=== PATIENT | male | born 1965 | race Caucasian/White ===

== ENCOUNTER 2020-05-11 05:56 | Observation (INO) | payer OTHER ==
[~2020-05-11] VITALS: Ht 188 cm; Wt 141.1 kg
[~2020-05-11 05:56] MED LIST: ACTOS15 MG PO; ASPIRIN81 MG PO; BYDUREON P2 MG/0.65 SC; DULCOLAX5 MG PO; GLIPIZIDE ER5 MG PO; IBUPROFEN400 MG PO; LIPITOR10 MG PO; METFORMIN HCL500 M2 PO; METOPROLOL SUCC25 MG PO; SEROQUEL100 MG PO; TYLENOL325 M2 PO; VIT C PO; ZOFRAN8 MG PO
[2020-05-11] MEDS ORDERED: SODIUM CHLORIDE FLUSH 10 ML SYR INJ PRN (06:30)
[2020-05-11] MEDS ORDERED: LORAZEPAM INJ 2 MG/ML VIAL ONE (06:51)
[2020-05-11] MEDS ORDERED: SODIUM CHLORIDE 0.9% 1000ML 1,000 ML ONE (06:51)
[2020-05-11] MEDS ORDERED: LORAZEPAM INJ 2 MG/ML VIAL IV ONE (07:00)
[2020-05-11] MEDS ORDERED: POTASSIUM CHLORIDE 20 MEQ TAB CR PO STA (07:55)
[2020-05-11] MEDS ORDERED: POTASSIUM CHLORIDE 10MEQ/100ML 100 ML IV ONE (08:00)
[2020-05-11] MEDS ORDERED: MAGNESIUM SULFATE 2GM/50ML 50 ML IV ONE (08:00)
[2020-05-11] MEDS ORDERED: FAMOTIDINE 20 MG TAB PO SCH ×2 (10:30→16:30)
[2020-05-11] MEDS ORDERED: ONDANSETRON HCL INJ 2MG/ML 2ML 2 MG/ML VIAL IV PRN (10:30)
[2020-05-11 11:35] VITALS: BP 120/84
[2020-05-11 11:40] VITALS: BP 120/84
[2020-05-11] MEDS ORDERED: ASPIRIN81 MG PO (12:39)
[2020-05-11 13:47] LABS: CREATINE KINASE MB 1.5 ng/mL (0-5.0)
[2020-05-11 15:45] VITALS: BP 120/80
[2020-05-11] MEDS ORDERED: POTASSIUM CHLORIDE 20 MEQ TAB CR PO PRN (16:45)
[2020-05-11] MEDS ORDERED: IBUPROFEN 400 MG TAB PO PRN (16:45)
[2020-05-11 16:59] LABS: % IRON SATURATION 15 % (15-50); IRON 30 ug/dL (65-175); TOTAL IRON BINDING CAPACITY 206 ug/dL (261-478); TRANSFERRIN 147 mg/dL (174-364)
[2020-05-11 17:37] VITALS: BP 120/80
[2020-05-11 18:00] VITALS: BP_SYST 109; BP_SYST 113; BP_SYST 75; BP_DIAS 50; BP_DIAS 80
[2020-05-11 18:07] LABS: BASOPHILS % 0.3 % (0.0-1.0); EOSINOPHILS # (AUTO) 0.1 (0.0-0.4); EOSINOPHILS % 1.8 % (0.0-6.0); HEMATOCRIT 32.3 % (38.2-49.6); HEMOGLOBIN 9.9 g/dL (14.0-18.0); LYMPHOCYTES # (AUTO) 1.5 (1.0-3.2); LYMPHOCYTES % 21.9 % (18.0-39.1); MEAN CORPUSCULAR HEMOGLOBIN 27.7 pg (28-32); MEAN CORPUSCULAR HGB CONC 30.7 g/dL (31-35); MEAN CORPUSCULAR VOLUME 90.2 fL (81-99); MONOCYTES # (AUTO) 0.6 (0.2-0.8); MONOCYTES % 8.8 % (4.4-11.3); NEUTROPHILS # (AUTO) 4.5 (2.1-6.9); NEUTROPHILS % 66.9 % (38.7-80.0); PLATELET COUNT 267 x10e3/uL (140-360); RED BLOOD COUNT 3.58 x10e6/uL (4.3-5.7); RED CELL DISTRIBUTION WIDTH 15.8 % (11.7-14.4)
[2020-05-11 18:26] LABS: ANION GAP 14.4 mmol/L (8-16); BLOOD UREA NITROGEN 13 mg/dL (7-26); BUN/CREATININE RATIO 14 (6-25); CALCIUM 8.2 mg/dL (8.4-10.2); CARBON DIOXIDE 27 mmol/L (22-29); CHLORIDE 103 mmol/L (98-107); CREATININE, SERUM 0.94 mg/dL (0.72-1.25); EST GLOMERULAR FILTRATION RATE > 60 ML/MIN (60-); GLUCOSE 93 mg/dL (74-118); POTASSIUM 3.4 mmol/L (3.5-5.1); SODIUM 141 mmol/L (136-145)
[2020-05-11] MEDS ORDERED: SODIUM CHLORIDE 0.9% 250ML 250 ML IV ONE (18:50)
[2020-05-11 19:05] LABS: CREATINE KINASE MB 1.4 ng/mL (0-5.0)
[2020-05-11] MEDS ORDERED: SODIUM CHLORIDE 0.9% 1000ML 1,000 ML IV SCH (19:30)
[2020-05-11 20:00] VITALS: BP 115/75
[2020-05-11] MEDS: SODIUM CHLORIDE 0.9% 1000ML 1,000 ML IV SCH (20:30)
[2020-05-11] MEDS ORDERED: ATORVASTATIN 20 MG TAB PO SCH (21:00)
[2020-05-11] MEDS ORDERED: QUETIAPINE FUMARATE 100 MG TAB PO SCH (21:00)
[2020-05-11] MEDS ORDERED: TAMSULOSIN HCL 0.4 MG CAP PO SCH (21:00)
[2020-05-11] MEDS ORDERED: ATORVASTATIN 10 MG TAB PO SCH (21:00)
[2020-05-11] MEDS: HEPARIN SOD (PORCINE) 5,000 UNIT/ML VIAL SC SCH (21:25)
[2020-05-12] VITALS (8 sets, daily range): BP systolic 111–124; BP diastolic 66–81
[2020-05-12 02:33] LABS: BASOPHILS % 0.3 % (0.0-1.0); EOSINOPHILS # (AUTO) 0.1 (0.0-0.4); EOSINOPHILS % 1.7 % (0.0-6.0); HEMATOCRIT 32.2 % (38.2-49.6); HEMOGLOBIN 9.8 g/dL (14.0-18.0); LYMPHOCYTES # (AUTO) 1.5 (1.0-3.2); LYMPHOCYTES % 23.4 % (18.0-39.1); MEAN CORPUSCULAR HEMOGLOBIN 27.4 pg (28-32); MEAN CORPUSCULAR HGB CONC 30.4 g/dL (31-35); MEAN CORPUSCULAR VOLUME 89.9 fL (81-99); MONOCYTES # (AUTO) 0.5 (0.2-0.8); MONOCYTES % 8.3 % (4.4-11.3); NEUTROPHILS # (AUTO) 4.2 (2.1-6.9); PLATELET COUNT 240 x10e3/uL (140-360); RED BLOOD COUNT 3.58 x10e6/uL (4.3-5.7); RED CELL DISTRIBUTION WIDTH 15.7 % (11.7-14.4)
[2020-05-12 02:42] LABS: INR 0.96; PROTHROMBIN TIME 13.3 seconds (11.9-14.5)
[2020-05-12 02:50] LABS: CHOL/HDL RATIO 3.3 (3.9-4.7); MAGNESIUM 1.9 MG/DL (1.3-2.1)
[2020-05-12 03:00] LABS: ALANINE AMINOTRANSFERASE 13 IU/L (0-55); ALBUMIN 3.3 g/dL (3.5-5.0); ALBUMIN/GLOBULIN RATIO 1.1 (0.8-2.0); ALKALINE PHOSPHATASE 57 IU/L (40-150); BLOOD UREA NITROGEN 13 mg/dL (7-26); BUN/CREATININE RATIO 16 (6-25); CALCIUM 8.1 mg/dL (8.4-10.2); CARBON DIOXIDE 25 mmol/L (22-29); CHLORIDE 103 mmol/L (98-107); CREATININE, SERUM 0.83 mg/dL (0.72-1.25); EST GLOMERULAR FILTRATION RATE > 60 ML/MIN (60-); GLUCOSE 91 mg/dL (74-118); SODIUM 140 mmol/L (136-145)
[2020-05-12 03:17] LABS: CREATINE KINASE MB 1.6 ng/mL (0-5.0)
[2020-05-12] MEDS: SODIUM CHLORIDE 0.9% 1000ML 1,000 ML IV SCH ×3 (04:27→14:33)
[2020-05-12] MEDS ORDERED: PANTOPRAZOLE SOD 40 MG TABEC PO SCH (07:30)
[2020-05-12] MEDS ORDERED: GLIPIZIDE 5 MG TAB ER PO SCH (07:30)
[2020-05-12] MEDS ORDERED: FLOMAX0.4 MG PO (07:53)
[2020-05-12] MEDS ORDERED: ONDANSETRON HCL 4 MG ORAL DISINTEGRATING TAB PO PRN (08:00)
[2020-05-12] MEDS ORDERED: POTASSIUM CHLORIDE 20 MEQ TAB CR PO ONE (08:15)
[2020-05-12] MEDS: HEPARIN SOD (PORCINE) 5,000 UNIT/ML VIAL SC SCH (08:22)
[2020-05-12] MEDS ORDERED: ASPIRIN 81 MG CHEW TAB PO SCH (09:00)
[2020-05-12] MEDS ORDERED: PIOGLITAZONE HCL 15 MG TAB PO SCH (09:00)
[2020-05-12] MEDS ORDERED: DEXAMETHASONE PHOS 10MG INJ 20 MG in SODIUM CHLORIDE 0.9% 50ML 50 ML IV ONE (12:00)
[2020-05-12] MEDS ORDERED: FAMOTIDINE INJ 20 MG in SODIUM CHLORIDE 0.9% 50ML 50 ML IV ONE (12:30)
[2020-05-12] MEDS ORDERED: DIPHENHYDRAMINE HCL INJ 25 MG in SODIUM CHLORIDE 0.9% 50ML 50 ML IV ONE (13:00)
[2020-05-12 13:07] LABS: BASOPHILS % 0.5 % (0.0-1.0); EOSINOPHILS # (AUTO) 0.1 (0.0-0.4); EOSINOPHILS % 0.9 % (0.0-6.0); HEMATOCRIT 31.6 % (38.2-49.6); HEMOGLOBIN 9.7 g/dL (14.0-18.0); LYMPHOCYTES # (AUTO) 1.3 (1.0-3.2); MEAN CORPUSCULAR HEMOGLOBIN 27.8 pg (28-32); MEAN CORPUSCULAR HGB CONC 30.7 g/dL (31-35); MEAN CORPUSCULAR VOLUME 90.5 fL (81-99); MONOCYTES # (AUTO) 0.5 (0.2-0.8); MONOCYTES % 7.5 % (4.4-11.3); NEUTROPHILS # (AUTO) 4.7 (2.1-6.9); NEUTROPHILS % 70.8 % (38.7-80.0); PLATELET COUNT 235 x10e3/uL (140-360); RED BLOOD COUNT 3.49 x10e6/uL (4.3-5.7); RED CELL DISTRIBUTION WIDTH 15.8 % (11.7-14.4)
[2020-05-12] MEDS ORDERED: IRON DEXTRAN INJ 50 MG in SODIUM CHLORIDE 0.9% 100 ML IV ONE (14:00)
[2020-05-12] MEDS ORDERED: IRON DEXTRAN INJ 500 MG in SODIUM CHLORIDE 0.9% 500ML 500 ML IV PRN (15:00)
== END 2020-05-12 18:17 | disposition left against medical advice (07) ==
LOC: FSED 06:38 → INTOOBSV 10:33 → ERHOLD 10:33 → MED/SURG 11:27
PROVIDERS: ADMIT Internal Medicine; ATTEND Internal Medicine
DX: R33.9 Retention of urine, unspecified (principal); I25.10 Atherosclerotic heart disease of native coronary artery without angina pectoris; K57.90 Diverticulosis of intestine, part unspecified, without perforation or abscess without bleeding; E11.9 Type 2 diabetes mellitus without complications; Q79.1 Other congenital malformations of diaphragm; D63.8 Anemia in other chronic diseases classified elsewhere; Z11.59 Encounter for screening for other viral diseases; E87.6 Hypokalemia; N50.0 Atrophy of testis; R33.8 Other retention of urine; N28.1 Cyst of kidney, acquired; E66.01 Morbid (severe) obesity due to excess calories; Z68.39 Body mass index [BMI] 39.0-39.9, adult; E78.5 Hyperlipidemia, unspecified; F99 Mental disorder, not otherwise specified; I95.1 Orthostatic hypotension; E77.8 Other disorders of glycoprotein metabolism; E88.09 Other disorders of plasma-protein metabolism, not elsewhere classified
CPT/HCPCS: 36415 ×2; 51700; 70450; 71045; 74176; 80048; 80053; 80061; 80076; 81003; 82550 ×2; 82553 ×2; 82607; 82948; 83036; 83540; 83735 ×2; 83880; 84443; 84466; 84484 ×2; 85025 ×2; 85610; 85730; 93005; 93306; 93880; 97116; 97161; 99284; G0378 ×2; J1100; J1200; J1644 ×2; J1750; J2060; J3475; J3480; J7030 ×2; J7040; J7050 ×2; S0164; U0002

== ENCOUNTER → 2020-07-07 | Day surgery (SDC) | payer OTHER ==
[~2020-07-07] MED LIST changes: +CYCLOBENZAPRINE10 MG PO; +FENTANYL CITRATE/PF 100MCG/2 ML INJ ONE; +FIORICET 50-301 EACH PO; +FLOMAX0.4 MG PO; +LIDOCAINE HCL 2% LOCAL INJ 5 ML SDV VIAL INJ ONE; +MIDAZOLAM HCL 2 MG/2 ML VIAL ONE; +OMEPRAZOLE40 MG PO; +POTASSIUM CHLO10 ME1 PO; +PROPOFOL IV EMULSION 10 MG/ML 20 ML VIAL ONE; +TYLENOL PM PO
[2020-07-07 11:35] VITALS: BP 126/89
== END | disposition home or self-care (01) ==
LOC: OR 06:09
PROVIDERS: ATTEND Internal Medicine Gastroenterology
DX: D50.9 Iron deficiency anemia, unspecified (principal); K29.40 Chronic atrophic gastritis without bleeding; K21.00 Gastro-esophageal reflux disease with esophagitis, without bleeding; K44.9 Diaphragmatic hernia without obstruction or gangrene; K57.30 Diverticulosis of large intestine without perforation or abscess without bleeding; K59.00 Constipation, unspecified; E11.9 Type 2 diabetes mellitus without complications; R55 Syncope and collapse; I95.0 Idiopathic hypotension; E66.01 Morbid (severe) obesity due to excess calories; Z01.810 Encounter for preprocedural cardiovascular examination; Z01.812 Encounter for preprocedural laboratory examination; Z20.828 Contact with and (suspected) exposure to other viral communicable diseases; Z79.84 Long term (current) use of oral hypoglycemic drugs; Z79.82 Long term (current) use of aspirin; Z68.42 Body mass index [BMI] 45.0-49.9, adult
CPT/HCPCS: 36415; 43239; 45378; 82948; 93005; J2001; J2250; J2704; J3010; U0002